=== PATIENT | male | born 1985 | race Caucasian/White ===

== ENCOUNTER 2024-04-28 17:51 | Outpatient (CLI) | payer OTHER, SELFPAY | END 2024-04-28 17:52 | disposition home or self-care (01) | PROVIDERS: PCP Family Medicine; Visit Provider Nurse Practitioner Family | DX: R53.83 Other fatigue (principal); I10 Essential (primary) hypertension; E78.5 Hyperlipidemia, unspecified; Z13.9 Encounter for screening, unspecified | CPT/HCPCS: 80053; 80061; 84403; 87563; 87798 ==